=== PATIENT | male | born 1965 | race Caucasian/White ===

== ENCOUNTER 2020-05-02 10:25 | Outpatient (CLI) | payer BC, SELFPAY ==
--- NOTE | ~2020-05-02 | XR_ITS ---
EXAMINATION: XR chest 2V DATE: 05/02/2020 11:28 INDICATION: Essential hypertension. TECHNIQUE: Frontal and lateral views of the chest were obtained. COMPARISON: None. FINDINGS: The chest demonstrates clear lungs without pneumonia, pleural effusion, or pneumothorax. Th e heart size is normal. IMPRESSION: 1. No acute cardiopulmonary disease. Reviewed, dictated and finalized at location B. ER COLD ROLLING MACHINE
--- NOTE | 2020-05-02 10:35 | ECG_ITS ---
Measurements Intervals [place] Rate: 74 P: 16 ME: 171 QRS: 0 QRSD: 101 T: 30 QT: 381 QTc: 425 Interpretive Statements SINUS RHYTHM BASELINE ARTIFACT- I, III, AVL NORMAL ECG Electronically Signed On 05-02-2020 11:16:46 [employer] DEVELOPER by Pedro Luis Rosen D.O.
--- NOTE | 2020-05-02 10:35 | EST_ITS ---
Patient Info Name: Moshe Glass Age: 54 years : 1965 Gender: Male Ht: 73 in Wt: 165 lbs BSA: 1.96 m2 Exam Date: 05/02/2020 10:42 AM Exam Location: [facility] Stress Patient Status: Outpatient Admit Date: 05/02/2020 Staff Ordering Physician: Christian Guerrero MD Attending Provider: Christian Guerrero MD Exercise Technologist: Desirae Mendiola [facility] Exercise Physician: Pedro Luis Rosen DO Exam Type: CA stress test treadmill Study Info Indications I10 - Essential (primary) hypertension A treadmill exercise stress test was performed. Summary 1. 1. Negative Eduardo exercise stress test for ischemic ST changes by ECG criteria. 2. 2. Poor functional capacity, achieving 4 METs of workload. 3. 3. Baseline hypertension with hypertensive response to exercise. 4. 4. Rapid HR response to exercise. 5. 5. Appropriate HR recovery at 1 minute post exercise. 6. 6. No imaging with stress testing. 7. 7. Patient informed of the above results. Protocol: Eduardo Stress ECG Details Stage: REST Duration (min): 7 min : 50 sec Speed (mph): 0.0 Grade (%): 0 HR (bpm): 78 SBP (mmHg): 148 DBP (mmHg): 97 METS: --- Stage: REST Duration (min): 8 min : 6 sec Speed (mph): 0.0 Grade (%): 0 HR (bpm): 78 SBP (mmHg): 148 DBP (mmHg): 97 METS: --- Stage: REST Duration (min): 9 min : 32 sec Speed (mph): 0.0 Grade (%): 0 HR (bpm): 73 SBP (mmHg): 148 DBP (mmHg): 97 METS: --- Stage: REST Duration (min): 16 min : 15 sec Speed (mph): 0.0 Grade (%): 0 HR (bpm): 78 SBP (mmHg): 148 DBP (mmHg): 97 METS: --- Stage: STAGE 1 Duration (min): 1 min : 0 sec Speed (mph): 1.7 Grade (%): 10 HR (bpm): 112 SBP (mmHg): 148 DBP (mmHg): 97 METS: --- Stage: STAGE 1 Duration (min): 2 min : 0 sec Speed (mph): 1.7 Grade (%): 10 HR (bpm): 141 SBP (mmHg): 148 DBP (mmHg): 97 METS: --- Stage: STAGE 1 Duration (min): 3 min : 0 sec Speed (mph): 1.7 Grade (%): 10 HR (bpm): 153 SBP (mmHg): 190 DBP (mmHg): 96 METS: --- Stage: RECOVERY Duration (min): 0 min : 59 sec Speed (mph): 0.0 Grade (%): 0 HR (bpm): 134 SBP (mmHg): 190 DBP (mmHg): 96 METS: --- Stage: RECOVERY Duration (min): 1 min : 59 sec Speed (mph): 0.0 Grade (%): 0 HR (bpm): 100 SBP (mmHg): 228 DBP (mmHg): 125 METS: --- Stage: RECOVERY Duration (min): 2 min : 59 sec Speed (mph): 0.0 Grade (%): 0 HR (bpm): 87 SBP (mmHg): 197 DBP (mmHg): 93 METS: --- Stage: RECOVERY Duration (min): 3 min : 59 sec Speed (mph): 0.0 Grade (%): 0 HR (bpm): 84 SBP (mmHg): 197 DBP (mmHg): 93 METS: --- Stage: RECOVERY Duration (min): 4 min : 59 sec Speed (mph): 0.0 Grade (%): 0 HR (bpm): 85 SBP (mmHg): 169 DBP (mmHg): 94 METS: --- Stage
== END 2020-05-02 10:26 | disposition home or self-care (01) ==
PROVIDERS: PCP Family Medicine; Visit Provider Family Medicine
DX: I10 Essential (primary) hypertension (principal)
CPT/HCPCS: 71046; 93005; 93017

== ENCOUNTER 2020-06-10 09:05 | Outpatient (CLI) | payer BC, SELFPAY ==
--- NOTE | 2020-06-26 11:31 | WPDHOMESLEEP ---
Sleep Study - Home Unattended Date of Study: 06/10/20 Ordering Provider: Christian Guerrero MD Interpreting Provider: Vaishali Roman MD Home Sleep Study Type: Apnea Link Air Height: 1.85 m Weight: 120.202 kg Body Mass Index: 34.9 Neck Circumference (inches): 19 [place]: 3 Reason for Sleep Study Occasional snoring, sleep study is suggested by his doctor Sleep History Moshe Glass is a 55 year old male with hypertension. He occasionally snores. It is never loud enough that others complain about it. He does not awaken at night with heartburn, belching or coughing. He does not awaken from sleep feeling short of breath. He does not have trouble sleeping with a cold. He denies gasping for breath at night and does not have breathing problems at night observed by others. He does not sweat excessively at night. He occasionally notices his heart pounding or beating irregularly night. He does not fall asleep during the day, does not fall asleep involuntarily or while driving. He does not have loss of muscle tone was strong emotion. He does not have daytime difficulties due to excessive sleepiness. He is an information assurance engineer. He does not feel paralyzed on waking or falling asleep. He rarely has vivid dreamlike scenes upon awakening or falling asleep. He does not feel afraid to go to sleep. He does not have nightmares. He rarely remembers his dreams. He frequently has racing thoughts. He does not feel sad or depressed. Rarely he has anxiety. He does not have muscular tension. He rarely notices parts of his body jerking. He does not kick at night. He does not have crawling or aching feelings in his legs or any kind of leg pain at night. He does not have morning jaw pain. He frequently grinds his teeth during sleep. He is not bothered by pain during the day and is not awakened by pain during the night. He does not wake up feeling stiff in the morning. He occasionally wakes up with sore or achy muscles. He does not wake up with pain in the neck and spine. He always awakens feeling refreshed. Normal bedtime is between 9 and 10:00 p.m. falling asleep within 15 minutes typically waking 1 or 2 times at night. He takes him 5 minutes to fall asleep again. He wakes in the morning between 5 and 6:00 a.m.. Weekend schedule is the same. He estimates 7 hours of sleep at night. He does not take naps. Short naps are not refreshing. He usually feels better in the morning compared other times of day. Habits: Never smoked tobacco. Caffeine 2 cups a day. Alcohol 2 drinks per week. No recreational drugs. [facility] Past Medical History Medical History Abnormal fasting glucose Anemia BMI 36.0-36.9,adult Colon cancer screening Elevated PSA, less than 10 ng/ml Encounter for wellness examination in adult Essential (primary) hypertension Hypersomnia Family History Family History Grandparent Coronary thrombosis Social History Social History Smoking status: Never smoker Alcohol intake: current Drinks per week: 2 Alcohol use details: liquor Substance use: never Substance use type: does not use Living arrangements: with family Gender identity (if verbalized by the patient): Male Spiritual care concerns: No Medications Home Medications Medication Instructions Recorded Confirmed Type lisinopril 20 mg tablet 20 mg PO DAILY #30 tablet 04/25/20 06/21/20 Rx Sleep Procedure This test was performed using 4 channel monitoring including respiratory effort channel, snoring channel, heart rate channel, and oxygen saturation channel. This study was scored using CMS guidelines. Sleep Architecture Not applicable for home sleep test. Respiratory Analysis The recording time is 7 hours 11 minutes. The evaluation time is 6 hours 2 minutes. The apnea-hypopne
[2020-06-26 11:41] VITALS: BMI 34.9
== END 2020-06-10 09:06 | disposition home or self-care (01) ==
LOC: ANHCSM 09:05
PROVIDERS: PCP Family Medicine; Visit Provider Family Medicine
DX: G47.33 Obstructive sleep apnea (adult) (pediatric) (principal)
CPT/HCPCS: 95806

== ENCOUNTER → 2020-06-18 02:11 | Outpatient (CLI) | payer BC, SELFPAY ==
[2020-06-18 22:47] LABS: SARS-CoV-2 RNA PCR Negative
== END ==
PROVIDERS: PCP Family Medicine; Visit Provider Internal Medicine Gastroenterology
DX: Z01.812 Encounter for preprocedural laboratory examination (principal); Z20.822 Contact with and (suspected) exposure to COVID-19
CPT/HCPCS: C9803; U0003; U0005

== ENCOUNTER 2020-06-21 01:07 | Day surgery (SDC) | payer BC, SELFPAY ==
[2020-06-10 13:38] VITALS: BMI 34.9
[2020-06-21 06:18] VITALS: BP 124/85; PULSE 73; RESP 18; TEMP 36.2; O2SAT 99; BMI 34.4
[2020-06-21] MEDS: LACTATED RINGERS 1,000 ML 150 ML IV CONT (06:27)
--- NOTE | 2020-06-21 06:57 | WPDANESEPPF ---
Anes - Initial Pre Proc Eval Procedure: Operation Date: 06/21/20 07:30 Proposed Procedures p Screening Colonoscopy - Jack Kurtz MD Date/Time: 06/21/20 06:57 Surgeon: Jack Kurtz MD Pre Op Diagnosis: neoplasm screening Patient Data Age: 55 Gender: M Height: 6 ft 1 in Weight: 118.3 kg Last Vital Signs Temp 97.1 F L 06/21/20 06:18 Pulse 73 06/21/20 06:18 Resp 18 06/21/20 06:18 BP 124/85 06/21/20 06:18 Pulse Ox 99 06/21/20 06:18 Allergies Allergy/AdvReac Type Severity Reaction Status Date / Time No Known Allergies Allergy Verified 06/10/20 13:37 Home Medications Medication Instructions Recorded Confirmed Type lisinopril 20 mg tablet 20 mg PO DAILY #30 tablet 04/25/20 06/21/20 Rx Patient hx anesthesia problems: none Family hx anesthesia problems: none PMFSH Past Medical History Medical History (Updated 04/25/20 @ 09:32 by Christian Guerrero MD) Abnormal fasting glucose Anemia BMI 36.0-36.9,adult Colon cancer screening Elevated PSA, less than 10 ng/ml Encounter for wellness examination in adult Essential (primary) hypertension Hypersomnia Family History Family History (Updated 04/25/20 @ 08:25 by Sia Yun MA) Grandparent Coronary thrombosis Social History Social History (Updated 04/25/20 @ 08:27 by Sai Yun MA) Smoking status: Never smoker Alcohol intake: current Drinks per week: 2 Alcohol use details: liquor Substance use: never Substance use type: does not use Living arrangements: with family Gender identity (if verbalized by the patient): Male Spiritual care concerns: No Anes - Eval Final PreProcedure Day of Procedure 06/21/20 06:57 Patient weight: obese Heart: regular rate and rhythm Airway: Mallampati scale class III Neurological: alert and oriented Last oral intake: >/= 8 hours ASA classification: III Emergent: no Anesthetic plan: proceed Anesthesia type and monitoring: general GIVS and standard monitoring Informed Consent: The patient's anesthetic plan and its attendant risks and benefits were discussed with the patient/family/POA. Questions were solicited and answers provided to the satisfaction of the patient/family/POA.
--- NOTE | 2020-06-21 07:21 | PM.HPGS ---
History of Present Illness History of Present Illness Consent: Risks, benefits, and alternatives have been discussed and questions answered. Patient agrees to proceed with procedure. Chief complaint: neoplasm screening Narrative: Moshe Glass is a 55 year old male referred for colon cancer screening. Review of Systems Review of Systems: All systems reviewed & are unremarkable except as noted in HPI and below PMFSH Past Medical History Medical History Abnormal fasting glucose Anemia BMI 36.0-36.9,adult Colon cancer screening Elevated PSA, less than 10 ng/ml Encounter for wellness examination in adult Essential (primary) hypertension Hypersomnia Family History Family History (Updated 04/25/20 @ 08:25 by Sia Yun MA) Grandparent Coronary thrombosis Social History Social History Smoking status: Never smoker Alcohol intake: current Drinks per week: 2 Alcohol use details: liquor Substance use: never Substance use type: does not use Living arrangements: with family Gender identity (if verbalized by the patient): Male Spiritual care concerns: No Meds Home Medications and Allergies Home Medications Medication Instructions Recorded Confirmed Type lisinopril 20 mg tablet 20 mg PO DAILY #30 tablet 04/25/20 06/21/20 Rx Allergies Allergy/AdvReac Type Severity Reaction Status Date / Time No Known Allergies Allergy Verified 06/10/20 13:37 Vital Signs Vital Signs - 24 hr 06/21/20 06:18 Temperature 36.2 C L Pulse Rate 73 Respiratory Rate 18 Blood Pressure 124/85 Pulse Oximetry 99 Exam Resp: Auscultation: clear to auscultation bilaterally Cardio: Rate: regular rate Rhythm: regular rhythm GI: GI Palp: Yes Soft to palpation and No Tenderness to palpation present (GI) Assessment and Plan Assessment and plan (1) Colon cancer screening: Code(s): Z12.11 - Encounter for screening for malignant neoplasm of colon Status: Acute Assessment and Plan: Colonoscopy with possible biopsy or polypectomy or cautery or injection of substances.
[2020-06-21 07:51] VITALS: BP 123/67; PULSE 61; RESP 21; O2SAT 98
[2020-06-21 08:01] VITALS: BP 123/76; PULSE 57; RESP 21; O2SAT 98
[2020-06-21 08:11] VITALS: BP 130/88; PULSE 57; RESP 14; O2SAT 98
== END 2020-06-21 08:25 | disposition home or self-care (01) ==
PROVIDERS: PCP Family Medicine; Visit Provider Internal Medicine Gastroenterology
PROC: 0DJD8ZZ Inspection of Lower Intestinal Tract, Via Natural or Artificial Opening Endoscopic (ICD-10-PCS; CPT 45378; principal; 2020-06-21 07:30)
DX: Z12.11 Encounter for screening for malignant neoplasm of colon (principal); D12.2 Benign neoplasm of ascending colon; D12.5 Benign neoplasm of sigmoid colon; K57.30 Diverticulosis of large intestine without perforation or abscess without bleeding; I10 Essential (primary) hypertension; E66.9 Obesity, unspecified; Z68.34 Body mass index [BMI] 34.0-34.9, adult
CPT/HCPCS: 45388; 45381; 45385; 88305; J2001; J2704; J7120